=== PATIENT | male | born 1955 | race Caucasian/White ===

== ENCOUNTER → 2023-04-23 16:59 | Outpatient (CLI) | payer MEDICARE, SELFPAY ==
[2023-04-23 15:41] LABS: Basophils % 0.4 % (0.1-2.0); Eosinophils # 0.1 K/mm3 (0.0-0.4); Eosinophils % 1.2 % (0.1-12.0); Hematocrit 41.8 % (42.0-52.0); Hemoglobin 14.2 g/dL (14.1-18.0); Lymphocytes % 30.6 % (10-50); Mean Corpuscular HGB Conc 33.9 g/dL (31.8-35.4); Mean Corpuscular Volume 97.5 fl (80-94); Mean Platelet Volume 11.4 fl (7.4-10.4); Monocytes # 0.4 K/mm3 (0.1-1.0); Neutrophils % 61.9 % (37.0-80.0); Platelet Count 260 K/mm3 (142-424); Red Blood Count 4.29 M/mm3 (4.60-6.20); White Blood Count 6.4 K/mm3 (4.8-10.8)
[2023-04-23 15:50] LABS: Alanine Aminotransferase 21 U/L (12-78); Albumin Level 4.3 g/dl (3.5-5.0); Albumin/Globulin Ratio 1.4 (1.1-1.8); Alkaline Phosphatase 70 U/L (38-126); Anion Gap 14.5 mEq/L (5-15); Aspartate Amino Transferase 30 U/L (17-59); Bilirubin,Total 0.4 mg/dl (0.2-1.3); Blood Urea Nitrogen 8 mg/dl (9-20); Calcium 9.2 mg/dl (8.4-10.2); Carbon Dioxide 22 mmol/L (22.0-30.0); Chloride 106 mmol/L (98-107); Chol/HDL Ratio 7.9 (1-3.5); Cholesterol 222 mg/dl (140-200); Estimated Glomerular Filt Rate 113 ml/min (>60); GFR (African American) 137 ML/MIN (>60); Glucose 109 mg/dl (74-100); HDL Cholesterol 28 mg/dl (40-60); Potassium 4.5 mmoL/L (3.5-5.1); Sodium 138 mmol/L (136-145); Total Protein,Serum 7.3 g/dl (6.3-8.2); Triglycerides 160 mg/dl (30-150); VLDL Cholesterol 32 mg/dL (0-40)
[2023-04-23 15:58] LABS: Amphetamine/Metha Screen,Urine Negative ng/ml (<1000); Barbiturates Screen,Urine Negative ng/ml (<200)
[2023-04-23 15:59] LABS: Cannabinoid Screen,Urine Negative ng/ml (<50)
[2023-04-23 16:00] LABS: Benzodiazepines Screen,Urine Negative ng/ml (<200); Methadone Screen,Urine Negative ng/ml (<300)
[2023-04-23 16:01] LABS: Cocaine Screen,Urine Negative ng/ml (<300); Phencyclidine Screen,Urine Negative ng/ml (<25)
[2023-04-23 16:02] LABS: Opiate Screen,Urine Positive ng/ml (<300)
[2023-04-23 16:11] LABS: 25-OH Vitamin D, Total 35.2 ng/mL (30-100)
[2023-04-23 16:26] LABS: Thyroid Stimulating Hormone 0.86 uIU/mL (0.465-4.68)
[2023-04-25 10:11] LABS: Testosterone,Total 387 ng/dL (264-916)
== END ==
PROVIDERS: PCP Emergency Medicine; Visit Provider Emergency Medicine
DX: M54.16 Radiculopathy, lumbar region (principal); R79.89 Other specified abnormal findings of blood chemistry; F41.9 Anxiety disorder, unspecified; E55.9 Vitamin D deficiency, unspecified; I10 Essential (primary) hypertension; Z12.5 Encounter for screening for malignant neoplasm of prostate
CPT/HCPCS: 80053; 80061; 80305; 82306; 84403; 84436; 84443; 85025

== ENCOUNTER → 2023-06-19 12:00 | Outpatient (CLI) | payer MEDICARE, SELFPAY ==
[2023-06-19 19:19] LABS: Basophils # 0.1 K/mm3 (0-0.2); Basophils % 0.7 % (0.1-2.0); Eosinophils # 0.2 K/mm3 (0.0-0.4); Eosinophils % 2.5 % (0.1-12.0); Hematocrit 41.7 % (42.0-52.0); Lymphocytes # 2.5 K/mm3 (0.7-4.5); Lymphocytes % 38.1 % (10-50); Mean Corpuscular HGB Conc 33.7 g/dL (31.8-35.4); Mean Corpuscular Hemoglobin 32.6 pg (27.0-31.2); Mean Corpuscular Volume 96.8 fl (80-94); Mean Platelet Volume 10.9 fl (7.4-10.4); Monocytes # 0.3 K/mm3 (0.1-1.0); Monocytes % 5.2 % (1.7-9.3); Neutrophils # 3.5 K/mm3 (1.8-7.8); Neutrophils % 53.4 % (37.0-80.0); Platelet Count 298 K/mm3 (142-424); Red Cell Distribution Width 12.9 % (11.5-17.5); White Blood Count 6.5 K/mm3 (4.8-10.8)
[2023-06-19 20:15] LABS: Alanine Aminotransferase 20 U/L (12-78); Albumin Level 4.6 g/dl (3.5-5.0); Albumin/Globulin Ratio 1.6 (1.1-1.8); Alkaline Phosphatase 72 U/L (38-126); Anion Gap 8.4 mEq/L (5-15); Aspartate Amino Transferase 30 U/L (17-59); Bilirubin,Total 0.4 mg/dl (0.2-1.3); Blood Urea Nitrogen 11 mg/dl (9-20); Calcium 8.7 mg/dl (8.4-10.2); Carbon Dioxide 27 mmol/L (22.0-30.0); Chloride 105 mmol/L (98-107); Chol/HDL Ratio 6.6 (1-3.5); Cholesterol 197 mg/dl (140-200); Estimated Glomerular Filt Rate 96 ml/min (>60); GFR (African American) 117 ML/MIN (>60); Globulin 2.8 g/dL (1.3-3.2); Glucose 97 mg/dl (74-100); HDL Cholesterol 30 mg/dl (40-60); Potassium 4.4 mmoL/L (3.5-5.1); Sodium 136 mmol/L (136-145); Total Protein,Serum 7.4 g/dl (6.3-8.2); Triglycerides 206 mg/dl (30-150); VLDL Cholesterol 41 mg/dL (0-40)
[2023-06-19 20:26] LABS: Direct LDL Cholesterol 127.97 mg/dL (100-129)
[2023-06-19 20:32] LABS: 25-OH Vitamin D, Total 41.7 ng/mL (30-100)
[2023-06-19 20:45] LABS: Thyroid Stimulating Hormone 1.02 uIU/mL (0.465-4.68)
[2023-06-19 21:35] LABS: Barbiturates Screen,Urine Negative ng/ml (<200); Benzodiazepines Screen,Urine Negative ng/ml (<200)
[2023-06-19 21:36] LABS: Amphetamine/Metha Screen,Urine Negative ng/ml (<1000)
[2023-06-19 21:37] LABS: Cocaine Screen,Urine Negative ng/ml (<300); Methadone Screen,Urine Negative ng/ml (<300)
[2023-06-19 21:38] LABS: Cannabinoid Screen,Urine Negative ng/ml (<50)
[2023-06-19 21:39] LABS: Opiate Screen,Urine Negative ng/ml (<300)
[2023-06-19 21:40] LABS: Phencyclidine Screen,Urine Negative ng/ml (<25)
[2023-06-19 22:06] LABS: Microalbumin < 6.000 mg/L (0-16.7)
[2023-06-19 23:30] LABS: Creatinine,Urine Random 11 mg/dL (Not Estab.)
[2023-06-24 13:23] LABS: Iron 145 ug/dL (49-181)
[2023-06-24 13:32] LABS: Total Iron Binding Capacity 264 ug/dL (261-462)
== END ==
LOC: LAB.DROPOF 06-20 00:02
PROVIDERS: PCP Internal Medicine; Visit Provider Internal Medicine
DX: E78.5 Hyperlipidemia, unspecified (principal); M54.16 Radiculopathy, lumbar region; Z12.5 Encounter for screening for malignant neoplasm of prostate; I10 Essential (primary) hypertension; F41.9 Anxiety disorder, unspecified; E55.9 Vitamin D deficiency, unspecified; D64.9 Anemia, unspecified; Z68.26 Body mass index [BMI] 26.0-26.9, adult; Z72.0 Tobacco use; Z79.899 Other long term (current) drug therapy; E66.3 Overweight
CPT/HCPCS: 80053; 80061; 80307; 82043; 82306; 82570; 83540; 83550; 84443; 85025; G0103

== ENCOUNTER 2024-04-07 10:36 | Outpatient (CLI) | payer MEDICARE, SELFPAY ==
[2024-04-07 20:47] LABS: Cholesterol 232 mg/dl (140-200); HDL Cholesterol 33 mg/dl (40-60); Triglycerides 155 mg/dl (30-150); VLDL Cholesterol 31 mg/dL (0-40)
[2024-04-07 20:58] LABS: Direct LDL Cholesterol 156.42 mg/dL (100-129)
== END 2024-04-07 23:59 | disposition home or self-care (01) ==
LOC: LAB.DROPOF 04-08 14:01
PROVIDERS: PCP Internal Medicine; Visit Provider Internal Medicine
DX: I10 Essential (primary) hypertension (principal); E34.9 Endocrine disorder, unspecified; E78.2 Mixed hyperlipidemia; Z72.0 Tobacco use; F11.90 Opioid use, unspecified, uncomplicated; M19.041 Primary osteoarthritis, right hand; M19.042 Primary osteoarthritis, left hand
CPT/HCPCS: 80061